=== PATIENT | male | born 1960 | race Caucasian/White ===

== ENCOUNTER 2018-12-07 10:43 | Outpatient (CLI) | payer BC ==
--- NOTE | 2018-12-07 12:11 | RAD ---
TWO VIEWS OF THE CHEST: COMPARISON: None. HISTORY: Positive TB skin reaction years ago. TB screening. FINDINGS: Two views of the chest show normal sized cardiomediastinal silhouette. There is no evidence of consol idation, mass, or pleural effusion. The bones are unremarkable. IMPRESSION: No evidence of acute cardiopulmonary disease. POS: [facility]
== END 2018-12-07 10:44 | disposition home or self-care (01) ==
LOC: BICRAD 10:43
PROVIDERS: ATTEND Internal Medicine Gastroenterology
DX: R76.11 Nonspecific reaction to tuberculin skin test without active tuberculosis (principal)
CPT/HCPCS: 71046